=== PATIENT | male | born 1970 | race Caucasian/White ===

== ENCOUNTER 2024-05-24 11:43 | Emergency (ER) | payer BC ==
[2024-05-24] MEDS: Diphtheria,Pertussis(Acell),Tetanus Vaccine 0.5 ML Syringe IM ONE (12:21)
== END 2024-05-24 12:30 | disposition home or self-care (01) ==
LOC: MW.ED 11:43
DX: T33.531A Superficial frostbite of right finger(s), initial encounter (principal); Z79.899 Other long term (current) drug therapy; Z23 Encounter for immunization; X31.XXXA Exposure to excessive natural cold, initial encounter; Y93.89 Activity, other specified
CPT/HCPCS: 90471; 90715; 99283; 99283-25